=== PATIENT | female | born 1955 | race Caucasian/White ===

== ENCOUNTER 2019-02-24 07:10 | Day surgery (SDC) | payer BC ==
[2019-02-24 07:43] VITALS: BMI 23.3
--- NOTE | 2019-02-24 09:12 | CP.SDSHP ---
Same Day Surgery H & P - History Proposed Procedure: colonoscopy Pre-Op Diagnosis: screen - Previous Medical/Surgical History Comments: hyperlipid - Allergies Allergies: Allergies No Known Allergies Allergy (Unverified 08/17/13 15:57) - Physical Exam Vital Signs: Vital Signs 02/24/19 08:09 Temperature 97 F L Pulse Rate 71 Respiratory 19 Rate Blood Pressure 144/90 O2 Sat by Pulse 98 Oximetry Mental Status: Alert & Oriented x3 Neuro: WNL Heart: WNL Lungs: WNL GI: WNL - Impression Impression: screen Pt. Evaluated Today:Candidate for Anesthesia & Procedure: Yes - Date & Time Date: 02/24/19 Time: 09:00 Short Stay Discharge - Short Stay Discharge Admitting Diagnosis/Reason for Visit: ENCOUNTER FOR SCREENING FOR MALIGNANT NEOPLASM OF Disposition: HOME/ ROUTINE
[2019-02-24] MEDS ORDERED: Propofol 10 mg/ml Inj (20 ML) ONE (09:15)
[2019-02-24 10:02] VITALS: O2SAT 100
[2019-02-24 10:25] VITALS: TEMP 98
[2019-02-24 10:40] VITALS: BP 105/81; PULSE 72; RESP 12
== END 2019-02-24 10:35 | disposition home or self-care (01) ==
LOC: C.ENDO 07:10
PROVIDERS: ATTEND Internal Medicine Gastroenterology
DX: Z12.11 Encounter for screening for malignant neoplasm of colon (principal); D12.5 Benign neoplasm of sigmoid colon; D12.8 Benign neoplasm of rectum; K57.30 Diverticulosis of large intestine without perforation or abscess without bleeding
CPT/HCPCS: 45380; 88305; J2704